=== PATIENT | male | born 1935 | race Caucasian/White ===

== ENCOUNTER 2017-08-11 13:51 | Emergency (ER) | payer OTHER ==
[~2017-08-11] VITALS: Ht 180.3 cm; Wt 100.0 kg
[~2017-08-11 13:51] MED LIST: ASPI1TAB69 PO; BUPR1TAB29 PO; CITA20TA4 PO; DIVA500T PO; HYDR-3533 PO; LIPI40TA PO; OMEP20TA93 PO; RISP4TAB2 PO; TEGR200T PO
[2017-08-11 13:59] VITALS: BP 156/76; PULSE 81; RESP 16; TEMP 97.3; O2SAT 96
[2017-08-11] MEDS ORDERED: ASPI81TA23 PO (14:37)
--- NOTE | 2017-08-11 14:39 | PD ---
HPI Chief Complaint: Fall Time Seen by Provider: 14:08 Travel History International Travel<30 days: No Contact w/Intl Traveler<30days: No Traveled to known affect area: No History of Present Illness HPI WHILE SITTING ON PORCH WITH AN OFFICE CHAIR, IT MOVED FROM UNDER HIM HE WAS TRYING TO SIT AND HE LANDED HITTING THE BACK OF HIS HEAD, SOME BLEEDING NOTED AND PLACED A BANDAID WHICH CONTROLLED BLEEDING....PER DAUGHTER PATIENT DIDN 'T LOSE CONSCIOUSNESS.....PT COMPLAINTS ON ADRIAN, 01/09, CHART AND RN NOTES REVIEWED SIGNIFICANT PMHX(NOT A COMPLETE REGURGITATION, CAN BE FOUND IN [employer]) DEMENTIA, PARKINSONS, AAA WITH STENT, HYPERCHOLESTEROL, HTN. 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) Sleep Apnea: Yes (C-PAP AT NIGHT REFUSES TO USE) Ulcer: No Past Surgical History Abdominal Aneurysm Repair: Yes (STENT X3) Abdominal Surgery: No Body Medical Devices: CARDIAC STENTS Cardiac Surgery: Yes (AAA WITH STENT PLACED) Ear Surgery: Yes (RT EAR) Endocrine Surgery: No Eye Surgery: No Genitourinary Surgery: No Gynecologic Surgery: No Oral Surgery: No Thoracic Surgery: No Other Surgery: Yes (HEMORRHOIDECTOMY) Social History Alcohol Use: No (QUIT 2008) Tobacco Use: No (QUIT 2006) Substance Use: No Allergies-Medications (Allergen,Severity, Reaction): Coded Allergies: penicillin G (Unverified Allergy, Severe, unknow, 08/11/17) PATIENT CAME WITH PCN BOTTLE THAT HAD "ALLERGIC" WRITTEN ON IT. hydrochlorothiazide (Unverified Allergy, Unknown, UNKNOWN, 08/11/17) Reported Meds & Prescriptions Reported Meds & Active Scripts Active Codeine-Acetaminophen 30-300 mg Tab 1 Tab PO Q4H PRN Reported Aspirin EC (Aspirin) 81 Mg Tabdr 81 Mg PO DAILY Lipitor (Atorvastatin Calcium) 40 Mg Tab 40 Mg PO HS Tegretol (Carbamazepine) 200 Mg Tab 400 Mg PO HS Tegretol (Carbamazepine) 200 Mg Tab 200 Mg PO DAILY Divalproex DR (Divalproex Sodium) 500 Mg Tabdr 1,000 Mg PO BID Risperidone 4 Mg Tab 5 Mg PO Q12HR Citalopram (Citalopram Hydrobromide) 20 Mg Tab 20 Mg PO DAILY Omeprazole 20 Mg Tab 20 Mg PO DAILY Review of Systems Except as stated in HPI: all other systems reviewed are Neg General / Constitutional: No: Fever Eyes: No: Visual changes HENT: No: Headaches Cardiovascular: No: Chest Pain or Discomfort Respiratory: No: Shortness of Breath Gastrointestinal: No: Abdominal Pain Genitourinary: No: Dysuria Musculoskeletal: No: Pain Skin: Positive Lesions (TO SCALP FROM FALL) Neurologic: No: Weakness Psychiatric: No: Depression Endocrine: No: Polydipsia Hematologic/Lymphatic: No: Easy Bruising Physical Exam Narrative GENERAL: ELDERLY IN NO DISTRESS SKIN: Warm and dry. HEAD: TOP OF HEAD SHOWED ABRASION TO SCALP, NO LACERATION TO REPAIR, NO HEMOTYMPANUM, NO CREPITUS OR E/O DEPRESSED SKULL FX...OTHERWISE Normocephalic. EYES: Pupils equal and round. No scleral icterus. No injection or drainage. ENT: No nasal bleeding or discharge. Mucous membranes pink and moist. NECK: Trachea midline. No JVD. CARDIOVASCULAR: Regular rate and rhythm. RESPIRATORY: No accessory muscle use. Clear to auscultation. Breath sounds equal bilaterally. GASTROINTESTINAL: Abdomen soft, non-tender, nondistended. MUSCULOSKELETAL: Extremities without clubbing, cyanosis, or edema. No obvious deformities. NEUROLOGICAL: Awake and alert. No obvious cranial nerve deficits. Motor grossly within normal limits. Five out of 5 muscle strength in the arms and legs. Normal speech. PSYCHIATRIC: Appropriate mood and affect; insight and judgment normal. Data Data Last Documented VS Vital Signs Date Time Temp Pulse Resp B/P (MAP) Pulse Ox O2 Delivery O2 Flow Rate FiO2 08/11/17 14:27 96 Room Air 08/11/17 13:59 97.3 81 16 156/76 (102) Orders Orders Ct Brain W/O Iv Contrast(Rout) (08/11/17 14:09) Elbow, Complete (4 Vws) (08/11/17 ) Tramadol (Ultram) (08/11/17 14:45) Ed Discharge Order (08/11/17 15:42) MDM Medical Decision Making Medical Screen Exam Complete: Yes Emergency Medical Condition: Yes Medical Record Reviewed: Yes Differential Diagnosis ICH V SKULL FX V SCALP ABRASION Narrative Course CT SHOWED NO ICH/SKULL FX PRESENT....ELBOW XRAY SHOWS OSTEOARTHRITIS BUT NO FX/ DISLOCATION Diagnosis Primary Impression: Scalp abrasion Qualified Codes: S00.01XA - Abrasion of scalp, initial encounter Additional Impression: Elbow arthritis Patient Instructions: Abrasion (ED), General Instructions Scripts Codeine-Acetaminophen (Codeine-Acetaminophen) 30-300 mg Tab 1 TAB PO Q4H Y for PAIN, #12 TAB 0 Refills Prov: Nj Alvarenga MD 08/11/17 Disposition: 01 DISCHARGE HOME Condition: Stable Nj Alvarenga MD Aug 11, 2017 14:39
[2017-08-11] MEDS ORDERED: traMADol HCL 50 MG TAB PO ONE (14:45)
--- NOTE | 2017-08-11 15:05 | RADRPT ---
EXAM DATE/TIME: 08/11/2017 14:44 [facility] COMPARISON: CT BRAIN W/O CONTRAST, May 11, 2016, 15:57. INDICATIONS : Fall. Hit top of head. RADIATION DOSE: 65.17 CTDIvol (mGy) MEDICAL HISTORY : Cerebrovascular disease. Aneurysm, abdominal. Hypertension. SURGICAL HISTORY : Abdominal aortic aneurysm repair. ENCOUNTER: Initial ACUITY: 1 day PAIN SCALE: Non-responsive LOCATION: cranial TECHNIQUE: Multiple contiguous axial images were obtained of the head. Using automated exposure control and adj ustment of the mA and/or kV according to patient size, radiation dose was kept as low as reasonably a chievable to obtain optimal diagnostic quality images. DICOM format image data is available electro nically for review and comparison. FINDINGS: CEREBRUM: The ventricles are normal for age. There is stable bilateral cortical atrophy. There is an old stable infarct in the left posterior parietal area. No evidence of midline shift, mass lesion, hemorrhage o r acute infarction. No extra-axial fluid collections are seen. POSTERIOR FOSSA: The cerebellum and brainstem are intact. The 4th ventricle is midline. The cerebellopontine angle i s unremarkable. EXTRACRANIAL: The visualized portion of the orbits is intact. SKULL: The calvaria is intact. No evidence of skull fracture. No significant change compared to the prior exam. CONCLUSION: 1. Stable CT scan of the brain compared to the prior exam of 05/11/2016. 2. No change in the bilateral cortical atrophy and old infarct involving the left posterior parietal area. Kal Roper MD on August 11, 2017 at 15:02 Board Certified Radiologist. This report was verified electronically.
--- NOTE | 2017-08-11 15:19 | RADRPT ---
EXAM DATE/TIME: 08/11/2017 14:57 [facility] COMPARISON: No previous studies available for comparison. INDICATIONS : Fell hitting head and right elbow. Has elbow pain MEDICAL HISTORY : Aneurysm, abdominal. Hypertension SURGICAL HISTORY : Abdominal aortic aneurysm repair. ENCOUNTER: Initial ACUITY: 1 day PAIN SCORE: Non-responsive. LOCATION: Right elbow FINDINGS: Multiple view examination of the right elbow demonstrates moderate primary diffuse degenerative herring es throughout the elbow joint. No acute fracture or joint dislocation is seen. There is joint space n arrowing at the radial capitellum joint. There is evidence of a joint effusion.. CONCLUSION: 1. No acute fracture joint dislocation. 2. Moderate primary degenerative changes throughout the entire elbow joint with a joint effusion. Kal Roper MD on August 11, 2017 at 15:16 Board Certified Radiologist. This report was verified electronically.
[2017-08-11] MEDS ORDERED: CODE30TA2 PO (15:39)
[2017-08-11 16:07] VITALS: BP 160/92
== END 2017-08-11 16:08 | disposition home or self-care (01) ==
LOC: PHED 13:51
DX: S00.01XA Abrasion of scalp, initial encounter (principal); M19.021 Primary osteoarthritis, right elbow; F03.90 Unspecified dementia, unspecified severity, without behavioral disturbance, psychotic disturbance, mood disturbance, and anxiety; I10 Essential (primary) hypertension; W07.XXXA Fall from chair, initial encounter; Y92.008 Other place in unspecified non-institutional (private) residence as the place of occurrence of the external cause; Z79.01 Long term (current) use of anticoagulants
CPT/HCPCS: 70450; 73080; 99284

== ENCOUNTER 2018-01-10 23:24 | Emergency (ER) | payer OTHER ==
[~2018-01-10] VITALS: Ht 175.3 cm; Wt 102.0 kg
[~2018-01-10 23:24] MED LIST changes: -ASPI1TAB69 PO; +ASPI81TA23 PO; -BUPR1TAB29 PO; +CODE30TA2 PO; -HYDR-3533 PO
[2018-01-10 23:25] VITALS: BP 228/121; PULSE 104; RESP 18; TEMP 97.9; O2SAT 97
[2018-01-10] MEDS ORDERED: BUPR150T3 PO (23:45)
[2018-01-10] MEDS ORDERED: LORA1TAB12 PO (23:45)
[2018-01-10] MEDS ORDERED: RISP1TAB2 PO (23:45)
[2018-01-11] MEDS ORDERED: ACETAMINOPHEN/HYDROcodone 325 MG/5 MG TAB PO ONE ×2 (00:15→04:00)
--- NOTE | 2018-01-11 00:15 | PD ---
HPI Chief Complaint: Fall Time Seen by Provider: 23:29 Travel History International Travel<30 days: No Contact w/Intl Traveler<30days: No Traveled to known affect area: No History of Present Illness HPI Patient is a 82-year-old male who lives at home he slipped and tripped tonight and hit the back of his head. Patient has a skin tear to his right forearm and elbow dressed by the paramedics. Patient has complained of back pain abdomen pain and left shoulder pain ,, Pts right arm has pain and occipital head pain . he is a poor historian. he has a history of CVA in the past. He also is severely hard of hearing and is very difficult to communicate with him. He shouts all his responses . 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 STATES HE HAS TREMMORS) Sleep Apnea: Yes (REFUSES TO USE C-PAP) Ulcer: No Influenza Vaccination: No Past Surgical History Abdominal Aneurysm Repair: Yes (STENT X3) Abdominal Surgery: No Body Medical Devices: CARDIAC STENTS Cardiac Surgery: Yes (AAA WITH STENT PLACED) Ear Surgery: Yes (RT EAR) Endocrine Surgery: No Eye Surgery: No Genitourinary Surgery: Yes (BOTOX IN BLADDER) Gynecologic Surgery: No Oral Surgery: No Thoracic Surgery: No Other Surgery: Yes (HEMORRHOIDECTOMY) Social History Alcohol Use: No (QUIT 2008) Tobacco Use: No (QUIT 2006) Substance Use: No Allergies-Medications (Allergen,Severity, Reaction): Coded Allergies: Sulfa (Sulfonamide Antibiotics) (Verified Allergy, Severe, HIVES, 01/11/18) cephalexin (Verified Allergy, Severe, HIVES, 01/11/18) penicillin G (Unverified Allergy, Severe, unknow, 01/11/18) PATIENT CAME WITH PCN BOTTLE THAT HAD "ALLERGIC" WRITTEN ON IT. hydrochlorothiazide (Unverified Allergy, Unknown, UNKNOWN, 01/11/18) Reported Meds & Prescriptions Reported Meds & Active Scripts Active [place] (Hydrocodone-Acetaminophen) 5 Mg-325 Mg Tab 1 Tab PO Q6H PRN Codeine-Acetaminophen 30-300 mg Tab 1 Tab PO Q4H PRN Reported Lorazepam 1 Mg Tab 1 Mg PO DAILY PRN Risperidone 1 Mg Tab 1 Mg PO DAILY Bupropion HCl ER 24 HR (Bupropion HCl) 150 Mg Tab 150 Mg PO DAILY Aspirin EC (Aspirin) 81 Mg Tabdr 81 Mg PO DAILY Lipitor (Atorvastatin Calcium) 40 Mg Tab 40 Mg PO HS Tegretol (Carbamazepine) 200 Mg Tab 400 Mg PO HS Tegretol (Carbamazepine) 200 Mg Tab 200 Mg PO DAILY Divalproex DR (Divalproex Sodium) 500 Mg Tabdr 1,000 Mg PO BID Citalopram (Citalopram Hydrobromide) 20 Mg Tab 20 Mg PO DAILY Omeprazole 20 Mg Tab 20 Mg PO DAILY Review of Systems Except as stated in HPI: all other systems reviewed are Neg Musculoskeletal: Positive: Myalgias Physical Exam Narrative GENERAL: Patient is very hard of hearing he is awake alert but yelling his answers because of his difficulty hearing SKIN: Warm and dry. He has a skin tear to his right elbow and right forearm superficial skin HEAD: Atraumatic. Normocephalic. occiput tender no obvious hematoma EYES: Pupils equal and round. No scleral icterus. No injection or drainage. ENT: No nasal bleeding or discharge. Mucous membranes pink and moist. NECK: Trachea midline. No JVD. CARDIOVASCULAR: Regular rate and rhythm. RESPIRATORY: No accessory muscle use. Clear to auscultation. Breath sounds equal bilaterally. GASTROINTESTINAL: Abdomen soft, non-tender, nondistended. Hepatic and splenic margins not palpable. MUSCULOSKELETAL: Extremities RIGht elbow and volar diistal radius skin tear superficial NEUROLOGICAL: Awake and alert [place] Muscles strength grossly within normal limits. Data Data Last Documented VS Vital Signs Date Time Temp Pulse Resp B/P (MAP) Pulse Ox O2 Delivery O2 Flow Rate FiO2 01/11/18 04:22 106 22 150/103 (119) 94 01/11/18 02:45 Room Air 01/10/18 23:25 97.9 Orders Orders Acetamin-Hydrocod 325-5 Mg ([place] 5-325 (01/11/18 00:15) Ct Abd/Pel W/O Iv Contrast (01/11/18 ) Ct Thorax/ Chest Wo Iv Contras (01/11/18 ) Ct Brain W/O Iv Contrast(Rout) (01/11/18 ) Ct Cerv Spine W/O Contrast (01/11/18 ) Lorazepam (Ativan) (01/11/18 01:45) Clonidine (Catapres) (01/11/18 01:45) Tetanus/Diphtheria Tox Adult (Tetanus/Di (01/11/18 01:45) Ed Discharge Order (01/11/18 03:56) Acetamin-Hydrocod 325-5 Mg ([place] 5-325 (01/11/18 04:00) MDM Medical Decision Making Medical Screen Exam Complete: Yes Emergency Medical Condition: Yes Medical Record Reviewed: Yes Differential Diagnosis contusion vs fall vs head injury fracture intracranial bleed spine injury hip injury other Narrative Course CT head cervical and abdo and chest negative lortab PO and clonidine and ativan for HTN , now SBP 150 and steri-strips to arm and D/C with daugther Diagnosis Primary Impression: Fall Qualified Codes: W19.XXXA - Unspecified fall, initial encounter Additional Impression: Arm laceration Qualified Codes: S41.111A - Laceration without foreign body of right upper arm , initial encounter Patient Instructions: Contusion in Adults (ED), General Instructions Scripts Hydrocodone-Acetaminophen ([place]) 5 Mg-325 Mg Tab 1 TAB PO Q6H Y for PAIN, #12 TAB 0 Refills Prov: Fortino Lind MD 01/11/18 Disposition: 01 DISCHARGE HOME Condition: Fortino Thibodeaux MD January 11, 2018 00:14
[2018-01-11 00:30] VITALS: BP 160/104; PULSE 105; RESP 18; O2SAT 96
[2018-01-11 01:35] VITALS: BP 194/123; PULSE 108; RESP 18; O2SAT 95
[2018-01-11] MEDS ORDERED: cloNIDine HCL 0.1 MG TAB PO ONE (01:45)
[2018-01-11] MEDS ORDERED: LORazepam 0.5 MG TAB PO ONE (01:45)
[2018-01-11] MEDS ORDERED: TETANUS/DIPHTHERIA TOXOID ADULT 0.5 ML VIAL IM ONE (01:45)
[2018-01-11 02:45] VITALS: BP 180/109; PULSE 109; RESP 20; O2SAT 95
--- NOTE | 2018-01-11 02:47 | RADRPT ---
EXAM DATE/TIME: 01/11/2018 02:11 [facility] COMPARISON: CT BRAIN W/O CONTRAST, August 11, 2017, 14:44. INDICATIONS : Trauma. Fell hitting back of head. RADIATION DOSE: 62.5 CTDIvol (mGy) MEDICAL HISTORY : Cerebrovascular disease. Dementia. Hypertension.GERD SURGICAL HISTORY : Abdominal aortic aneurysm repair. ENCOUNTER: Initial ACUITY: 1 day PAIN SCALE: 0/10 LOCATION: cranial TECHNIQUE: Multiple contiguous axial images were obtained of the head. Using automated exposure control and adj ustment of the mA and/or kV according to patient size, radiation dose was kept as low as reasonably a chievable to obtain optimal diagnostic quality images. DICOM format image data is available electro nically for review and comparison. FINDINGS: CEREBRUM: The ventricles are normal for a age with diffuse moderate atrophic change. There is an old stable lef t temporoparietal infarct. No evidence of midline shift, mass lesion, hemorrhage or acute infarction. No extra-axial fluid collections are seen. POSTERIOR FOSSA: The cerebellum and brainstem are intact. The 4th ventricle is midline. The cerebellopontine angle i s unremarkable. EXTRACRANIAL: The visualized portion of the orbits is intact. SKULL: The calvaria is intact. No evidence of skull fracture. CONCLUSION: 1. No acute hemorrhage or fracture. 2. Old left temporal parietal infarction. Simón Parra MD on January 11, 2018 at 2:43 Board Certified Radiologist. This report was verified electronically.
--- NOTE | 2018-01-11 02:48 | RADRPT ---
EXAM DATE/TIME: 01/11/2018 02:11 [facility] COMPARISON: No previous studies available for comparison. INDICATIONS : Trauma. Fall. RADIATION DOSE: 26.54 CTDIvol (mGy) MEDICAL HISTORY : Cerebrovascular disease. Dementia. Hypertension.GERD SURGICAL HISTORY : Abdominal aortic aneurysm repair. ENCOUNTER: Initial ACUITY: 1 day PAIN SCALE: 0/10 LOCATION: neck TECHNIQUE: Volumetric scanning of the cervical spine was performed. Multiplanar reconstructions i n the sagittal, coronal and oblique axial planes were performed. Using automated exposure control a nd adjustment of the mA and/or kV according to patient size, radiation dose was kept as low as reason ably achievable to obtain optimal diagnostic quality images. DICOM format image data is available e lectronically for review and comparison. FINDINGS: The sagittal reconstructions demonstrate normal alignment and normal prevertebral soft tissues. The d ens is intact and there is a normal atlantoaxial relationship. Degenerative disc change is present wi th disc space narrowing and hypertrophic changes. The axial images demonstrate that the vertebral bodies and posterior elements are intact. The soft ti ssues are within normal limits. There is no evidence of acute fracture or malalignment. CONCLUSION: Negative trauma CT. Simón Parra MD on January 11, 2018 at 2:45 Board Certified Radiologist. This report was verified electronically.
--- NOTE | 2018-01-11 02:51 | RADRPT ---
EXAM DATE/TIME: 01/11/2018 02:18 [facility] COMPARISON: No previous studies available for comparison. INDICATIONS : Trauma. Fall. Left rib pain. RADIATION DOSE: 33.34 CTDIvol (mGy) ; Combined studies - Thorax/Abdomen/Pelvis MEDICAL HISTORY : Cerebrovascular disease. Dementia. Hypertension. GERD SURGICAL HISTORY : Abdominal aortic aneurysm repair. ENCOUNTER: Initial ACUITY: 1 day PAIN SCALE: 0/10 LOCATION: Left chest TECHNIQUE: Volumetric scanning of the chest was performed. Using automated exposure control and adjustment of t he mA and/or kV according to patient size, radiation dose was kept as low as reasonably achievable to obtain optimal diagnostic quality images. DICOM format image data is available electronically for r eview and comparison. Follow-up recommendations for detected pulmonary nodules are based at a minimum on nodule size and pa tient risk factors according to Fleischner Society Guidelines. FINDINGS: LUNGS: There is no consolidation or pneumothorax. No concerning pulmonary nodule is visualized. There is ch ronic scarring PLEURAE: There is no pleural thickening or pleural effusion. MEDIASTINUM: The heart and great vessels demonstrate no acute abnormality. There is no mediastinal or hilar lymph adenopathy. Severe atherosclerotic changes are noted involving the aorta with dilatation, calcificati on and tortuosity. Aortic arch is dilated up to approximately 5.2 cm. Coronary artery calcifications are present. AXILLAE: Within normal limits. No lymphadenopathy. MUSCULOSKELETAL: Within normal limits for patient age. MISCELLANEOUS: The visualized upper abdominal organs demonstrate no acute abnormality. There is a small calcified ga llstone. CONCLUSION: 1. Negative trauma study with no evidence of rib fracture or pneumothorax. There is no visceral injur y. 2. Small calcified gallstone. 3. Severe atherosclerotic change in the thoracic aorta with dilatation, tortuosity and calcification. 4. Coronary artery calcifications. Simón Parra MD on January 11, 2018 at 2:46 Board Certified Radiologist. This report was verified electronically.
--- NOTE | 2018-01-11 02:53 | RADRPT ---
EXAM DATE/TIME: 01/11/2018 02:18 [facility] COMPARISON: No previous studies available for comparison. INDICATIONS : Trauma. Fall. ORAL CONTRAST: No oral contrast ingested. RADIATION DOSE: 33.34 CTDIvol (mGy) ; Combined studies - Thorax/Abdomen/Pelvis MEDICAL HISTORY : Cerebrovascular disease. Dementia. Hypertension.GERD SURGICAL HISTORY : Abdominal aortic aneurysm repair. ENCOUNTER: Initial ACUITY: 1 day PAIN SCALE: 0/10 LOCATION: Left abdomen TECHNIQUE: Volumetric scanning of the abdomen and pelvis was performed. Using automated exposure control and ad justment of the mA and/or kV according to patient size, radiation dose was kept as low as reasonably achievable to obtain optimal diagnostic quality images. DICOM format image data is available electro nically for review and comparison. FINDINGS: LOWER LUNGS: The visualized lower lungs are clear. LIVER: Homogeneous density without lesion. There is no dilation of the biliary tree. There is a single smal l calcified gallstone measuring approximately 8 mm. SPLEEN: Normal size without lesion. PANCREAS: Within normal limits. KIDNEYS: Normal in size and shape. There is no mass, stone, or hydronephrosis. ADRENAL GLANDS: Within normal limits. VASCULAR: Atherosclerotic changes are present. Patient status post abdominal aortic aneurysm repair with stent graft. BOWEL/MESENTERY: The stomach, small bowel, and colon demonstrate no acute abnormality. There is no free intraperitone al air or fluid. ABDOMINAL WALL: Within normal limits. RETROPERITONEUM: There is no lymphadenopathy. BLADDER: No wall thickening or mass. REPRODUCTIVE: Within normal limits. INGUINAL: There is no lymphadenopathy or hernia. MUSCULOSKELETAL: Within normal limits for patient age. CONCLUSION: 1. No evidence of visceral injury. 2. Status post abdominal aortic aneurysm repair with stent graft. 3. Single small calcified gallstone with no wall thickening or pericholecystic fluid. Simón Parra MD on January 11, 2018 at 2:49 Board Certified Radiologist. This report was verified electronically.
[2018-01-11] MEDS ORDERED: NORC5TAB PO (04:01)
[2018-01-11 04:21] VITALS: BP 150/101
[2018-01-11 04:22] VITALS: BP 150/103
== END 2018-01-11 04:22 | disposition home or self-care (01) ==
LOC: PHED 23:24
DX: S51.811A Laceration without foreign body of right forearm, initial encounter (principal); W01.0XXA Fall on same level from slipping, tripping and stumbling without subsequent striking against object, initial encounter; R51 Headache; M25.512 Pain in left shoulder; M54.9 Dorsalgia, unspecified; R10.9 Unspecified abdominal pain; G20 Parkinson's disease; I10 Essential (primary) hypertension; Z87.891 Personal history of nicotine dependence
CPT/HCPCS: 70450; 71250; 72125; 74176